=== PATIENT | female | born 1970 | race Two or more races ===

== ENCOUNTER 2018-07-01 01:15 | Emergency (ER) | payer BC, MEDICAID ==
[~2018-07-01] VITALS: Ht 160 cm; Wt 92.5 kg
[~2018-07-01 01:15] MED LIST: ALBUTEROL SULF8.5 GM INH; ALLERGY4 MG PO; AZITHROMYCIN250 MG ORAL; AZITHROMYCIN250 MG PO; BACTRIM DS TAB1 EAC1 ORAL; COLACE100 MG ORAL; DIFLUCAN100 MG PO; DIPHENHYDRAMINE25 M1 ORAL; IBUPROFEN600 MG ORAL; KEFLEX500 MG ORAL; MOTRIN600 MG PO; NAPROXEN500 M1 ORAL; NORCO 5-325 TA1 EACH ORAL; NORCO1 EA ORAL; PENICILLIN V P500 MG PO; PREDNISOLO15 MG/5 M1 PO; PREDNISONE20 MG ORAL; ROBAXIN-750750 MG PO; ROBITUSSIN DM5 ML ORAL
--- NOTE | 2018-07-01 01:45 | Emergency Room Report ---
History of Present Illness General Chief Complaint: Lower Extremity Injury Source: Patient Present Illness HPI This 48-year-old female with no significant past medical history. She thinks she may have gout in the past. She presents with right heel pain. Has been ongoing for 4 days now. Worse with walking. There is some swelling to that area. No trauma. Pain is 9 out of 10. No radiation. Allergies: Coded Allergies: No Known Allergies (Unverified , 01/21/13) Patient History Past Medical History: see triage record, old chart reviewed Past Surgical History: other Pertinent Family History: none Social History: Denies: smoking Last Menstrual Period: May Now: No Immunizations: other Reviewed Nursing Documentation: PMH: Agreed; PSxH: Agreed Nursing Documentation-PMH Past Medical History: No Stated History Review of Systems Eye: Denies: eye pain, blurred vision ENT: Denies: ear pain, nose congestion, throat swelling Respiratory: Denies: cough, shortness of breath Cardiovascular: Denies: chest pain, palpitations Gastrointestinal: Denies: abdominal pain, diarrhea, nausea, vomiting Musculoskeletal: Reports: muscle pain; Denies: back pain, joint pain Skin: Denies: rash Neurological: Denies: headache, numbness Endocrine: Denies: increased thirst, increased urine Hematologic/Lymphatic: Denies: easy bruising All Other Systems: negative except mentioned in HPI Physical Exam Vital Signs Date Time Temp Pulse Resp B/P (MAP) Pulse Ox O2 Delivery O2 Flow Rate FiO2 07/01/18 01:18 98.3 74 16 120/80 97 Room Air 98.2 vvitals normal Sp02 EP Interpretation: reviewed, normal General Appearance: well appearing, no apparent distress, alert Head: normocephalic, atraumatic Eyes: bilateral eye PERRL, bilateral eye EOMI ENT: hearing grossly normal, normal pharynx Neck: full range of motion, supple, no meningismus Respiratory: chest non-tender, lungs clear, normal breath sounds Cardiovascular #1: regular rate, rhythm, no murmur Gastrointestinal: normal bowel sounds, non tender, no mass, no organomegaly, no bruit, non-distended Musculoskeletal: back normal, normal range of motion, tender - Tenderness to the right calcaneus. No deformity. Mild edema. No redness. Minimal warmth. Neurologic: alert, oriented x3 Psychiatric: mood/affect normal Skin: warm/dry Medical Decision Making Diagnostic Impression: Primary Impression: Calcaneal bursitis, right ER Course Patient with heel pain. No evidence of any fracture dislocation. She does have a small bone spur in that area. I doubt this is gout since is an atypical area and presentation. No evidence of any septic joint. We'll discharge home. Other X-Ray Diagnostic Results Other X-Ray Diagnostic Results : X-Ray ordered: x-ray right foot # of Views/Limited Vs Complete: 3 View Indication: Pain EP Interpretation: Yes Interpretation: no dislocation, no soft tissue swelling, no fractures, other - bone spur to heal Impression: No acute disease Electronically Signed by: Compa López MD Last Vital Signs Date Time Temp Pulse Resp B/P (MAP) Pulse Ox O2 Delivery O2 Flow Rate FiO2 07/01/18 01:18 98.3 74 16 120/80 97 Room Air 98.2 Status: improved Disposition: HOME, SELF-CARE Condition: Stable Scripts Ibuprofen* (MOTRIN*) 600 Mg Tablet 600 MG ORAL THREE TIMES A DAY, #30 TAB 0 Refills Prov: CMOPA LÓPEZ M.D. 07/01/18 Additional Instructions: Follow-up with your doctor in 7 days. Elevate the foot. Ice pack to the area. Return if worse. COMPA LÓPEZ M.D. Jul 01, 2018 01:45
--- NOTE | 2018-07-01 02:31 | Diagnostic Imaging Report ---
EXAM: XR Right Foot Complete, 3 or More Views. CLINICAL HISTORY: PAIN TECHNIQUE: Frontal, lateral and oblique views of the right foot. COMPARISON: No relevant prior studies available. FINDINGS: Bones: No acute fracture. Posterior calcaneal spur. Joints: No dislocation. Mild degenerative changes of the first metatarsophalangeal joint. Soft tissues: No radiopaque foreign body. IMPRESSION: No acute osseous abnormality.
[2018-07-01] MEDS ORDERED: IBUPROFEN600 MG ORAL (02:41)
[2018-07-01 02:47] VITALS: BP 0/0
== END 2018-07-01 02:47 | disposition home or self-care (01) ==
LOC: EMR 02:08
DX: M77.51 Other enthesopathy of right foot and ankle (principal); M77.31 Calcaneal spur, right foot; M79.1 Myalgia
CPT/HCPCS: 99283

== ENCOUNTER 2020-01-10 15:32 | Inpatient (IN) | payer OTHER, MEDICAID ==
[~2020-01-10] VITALS: Ht 160 cm; Wt 97.5 kg
--- NOTE | 2020-01-10 15:49 | NUR ---
ED Nurse Note: patient walked into ED from her PMD due to abnomral ekg. patient reports intermittently stiff neck for 2 months. patient denies any cardiac history. patient is alert awake x 4 ambulatory steady gait, breathing unlabored and even. patient on a hospital gown, on a quality assurance monitor final.
[2020-01-10 16:00] VITALS: BP 116/61
--- NOTE | 2020-01-10 16:10 | Emergency Room Report ---
History of Present Illness General Chief Complaint: General Complaint Source: Patient Present Illness HPI Patient was sent by her private doctor because of an abnormal EKG and alleged hypertension. The patient's been having intermittent chest pain for over 4 months. She sometimes feels a bubble in her heart that lasts for seconds and she feels dizzy at that time. This is not related to the pain that she feels which she describes as sharp. She is not taken any medication for this pain. She also states that she has intermittent edema that is worse at the end of the day. Her legs are skinny in the morning. She denies any calf pain. There is no hemoptysis. The patient also complains about neck pain and stiffness. She claims that 2 years ago she had x-rays or an MRI that were normal. She is not taken any medication or had physical therapy for this. She feels a prominence in the right base of her skull. Third problem is that she has rash that is intermittent in her bikini line. She is been seen by a surgeon and he has described it as being something like psoriasis. She says it sometimes drains. She claims is not MRSA. She denies any fevers or chills. No dysuria. The patient smokes heavily. Allergies: Coded Allergies: No Known Allergies (Unverified , 01/21/13) Patient History Past Medical History: see triage record Social History: Reports: smoking Social History Narrative born in [place] Now: No Reviewed Nursing Documentation: PMH: Agreed; PSxH: Agreed Nursing Documentation-PMH Past Medical History: No Stated History Review of Systems All Other Systems: negative except mentioned in HPI Physical Exam Vital Signs Date Time Temp Pulse Resp B/P (MAP) Pulse Ox O2 Delivery O2 Flow Rate FiO2 01/10/20 15:40 98.2 91 18 120/76 (91) 98 Room Air Sp02 EP Interpretation: reviewed, normal General Appearance: well appearing, no apparent distress, GCS 15 Head: normocephalic Eyes: bilateral eye normal inspection, bilateral eye PERRL, bilateral eye EOMI ENT: moist mucus membranes Neck: full range of motion, supple, tender - right mastoid - more muscular Respiratory: chest non-tender, lungs clear, normal breath sounds Cardiovascular #1: regular rate, rhythm, no edema Cardiovascular #2: 2+ radial (R) Gastrointestinal: normal inspection, normal bowel sounds, non tender, no mass, non-distended Genitourinary: no CVA tenderness Musculoskeletal: back normal, normal range of motion, gait/station normal Neurologic: alert, oriented x3, grossly normal Psychiatric: mood/affect normal Skin: warm/dry, other - follicular rash groin, inner thighs Medical Decision Making Diagnostic Impression: Primary Impression: NSTEMI (non-ST elevated myocardial infarction) Additional Impressions: Tobacco abuse Neck pain Folliculitis ER Course Patient presents with left-sided chest pain for several months with an abnormal EKG from her private doctor. Differential includes cardiac ischemia, variation of normal EKG, acute myocardial infarction, arrhythmia, chest wall pain amongst others. Evaluation with EKG, chest x-ray and labs. At this point the patient declines pain medication. The 2 other problems that she has intermittent neck stiffness. With a history of prior MRI or x-rays that were normal no indication for starting at this time. The third the rash in the bikini area no obvious infection at this time. Local treatment with bacitracin advised to patient. EKG from private doctor's office taken today at 1420. Normal sinus rhythm with nonspecific ST-T wave changes septally. Rate 82. EKG here: Normal sinus rhythm with nonspecific ST-T wave changes. Heart rate 85. Some suggestion of P pulmonale. Called 1655 with positive troponin. Aspirin and nitrates ordered. Unable to order beta-blockers. Rest of labs remarkable.for elevated WBC without left shift. Minimally low potassium. Pyuria, though specimen is contaminated. Admit patient telemetry for cardiac evaluation. Improved with treatment and denies pain. Laboratory Tests Test 01/10/20 16:00 01/10/20 16:12 White Blood Count 11.7 K/UL (4.8-10.8) H Red Blood Count 4.56 M/UL (4.20-5.40) Hemoglobin 13.5 G/DL (12.0-16.0) Hematocrit 40.1 % (37.0-47.0) Mean Corpuscular Volume 88 FL (80-99) Mean Corpuscular Hemoglobin 29.5 PG (27.0-31.0) Mean Corpuscular Hemoglobin Concent 33.6 G/DL (32.0-36.0) Red Cell Distribution Width 14.5 % (11.6-14.8) Platelet Count 399 K/UL (150-450) Mean Platelet Volume 9.6 FL (6.5-10.1) Neutrophils (%) (Auto) 71.0 % (45.0-75.0) Lymphocytes (%) (Auto) 21.0 % (20.0-45.0) Monocytes (%) (Auto) 5.0 % (1.0-10.0) Eosinophils (%) (Auto) 2.0 % (0.0-3.0) Basophils (%) (Auto) 1.0 % (0.0-2.0) Prothrombin Time 10.0 SEC (9.30-11.50) Prothrombin Time INR 0.9 (0.9-1.1) Activated Partial Thromboplast Time 27 SEC (23-33) Sodium Level 141 MMOL/L (136-145) Potassium Level 3.4 MMOL/L (3.5-5.1) L Chloride Level 102 MMOL/L (98-107) Carbon Dioxide Level 29 MMOL/L (21-32) Anion Gap 10 mmol/L (5-15) Blood Urea Nitrogen 10 mg/dL (7-18) Creatinine 0.9 MG/DL (0.55-1.30) Estimate Glomerular Filtration Rate > 60 mL/min (>60) Glucose Level 116 MG/DL (74-106) H Calcium Level 9.2 MG/DL (8.5-10.1) Total Bilirubin 0.3 MG/DL (0.2-1.0) Aspartate Amino Transferase (AST) 23 U/L (15-37) Alanine Aminotransferase (ALT) 38 U/L (12-78) Alkaline Phosphatase 84 U/L (46-116) Total Creatine Kinase 54 U/L (26-308) Troponin I 0.100 ng/mL (0.000-0.056) Pro-B-Type Natriuretic Peptide < 5 pg/mL (0-125) Total Protein 7.9 G/DL (6.4-8.2) Albumin 3.5 G/DL (3.4-5.0) Globulin 4.4 g/dL Albumin/Globulin Ratio 0.8 (1.0-2.7) L Urine Color Pale yellow Urine Appearance Slightly cloudy Urine pH 7 (4.5-8.0) Urine Specific [place] 1.015 (1.005-1.035) Urine Protein Negative (NEGATIVE) Urine Glucose (UA) Negative (NEGATIVE) Urine Ketones 1+ (NEGATIVE) H Urine Blood Negative (NEGATIVE) Urine Nitrite Negative (NEGATIVE) Urine Bilirubin Negative (NEGATIVE) Urine Urobilinogen Normal MG/DL (0.0-1.0) Urine Leukocyte Esterase 1+ (NEGATIVE) H Urine RBC 0-2 /HPF (0 - 2) Urine WBC 5-10 /HPF (0 - 2) H Urine Squamous Epithelial Cells Many /LPF (NONE/OCC) H Urine Bacteria Few /HPF (NONE) EKG Diagnostic Results Rate: normal Rhythm: NSR ST Segments: no acute changes - Nonspecific ST-T wave changes Rhythm Strip Diag. Results EP Interpretation: yes Rhythm: NSR, no PVC's, no ectopy Chest X-Ray Diagnostic Results Chest X-Ray Diagnostic Results : Chest X-Ray Ordered: Yes # of Views/Limited/Complete: 1 View Indication: Chest Pain EP Interpretation: Yes Interpretation: no consolidation, no effusion, no pneumothorax Impression: No acute disease Electronically Signed by: Electronically signed by Luis A Torres MD Last Vital Signs Date Time Temp Pulse Resp B/P (MAP) Pulse Ox O2 Delivery O2 Flow Rate FiO2 01/10/20 23:14 Room Air 01/10/20 17:07 110/61 01/10/20 16:05 95 14 01/10/20 16:00 98.2 95 Status: improved Disposition: HOME, SELF-CARE Condition: Improved Scripts No Active Prescriptions or Reported Meds Luis A Torres MD Jan 10, 2020 16:10
[2020-01-10 16:35] LABS: APPEARANCE,URINE SLIGHTLY CLOUDY; BILIRUBIN, URINE NEGATIVE (NEGATIVE); COLOR,URINE PALE YELLOW; GLUCOSE, URINE (UA) NEGATIVE (NEGATIVE); KETONES,URINE 1+ (NEGATIVE); LEUKOCYTE ESTERASE ,URINE 1+ (NEGATIVE); NITRITE,URINE NEGATIVE (NEGATIVE); PH,URINE 7 (4.5-8.0); PROTEIN,URINE NEGATIVE (NEGATIVE); UROBILINOGEN,URINE NORMAL MG/DL (0.0-1.0)
[2020-01-10 16:41] LABS: HEMATOCRIT 40.1 % (37.0-47.0); HEMOGLOBIN 13.5 G/DL (12.0-16.0); MEAN CORPUSCULAR VOLUME 88 FL (80-99); PLATELET COUNT 399 K/UL (150-450); RED BLOOD COUNT 4.56 M/UL (4.20-5.40); RED CELL DISTRIBUTION WIDTH 14.5 % (11.6-14.8); WHITE BLOOD COUNT 11.7 K/UL (4.8-10.8)
[2020-01-10 16:46] LABS: INR 0.9 (0.9-1.1)
--- NOTE | 2020-01-10 16:49 | Diagnostic Imaging Report ---
Indication: Chest pain Technique: One view of the chest Comparison: none Findings: Lungs and pleural spaces are clear. Heart size is normal. Impression: No acute process
[2020-01-10 16:54] LABS: ANION GAP 10 mmol/L (5-15); BLOOD UREA NITROGEN 10 mg/dL (7-18); CALCIUM 9.2 MG/DL (8.5-10.1); CARBON DIOXIDE 29 MMOL/L (21-32); CHLORIDE 102 MMOL/L (98-107); CREATININE 0.9 MG/DL (0.55-1.30); POTASSIUM 3.4 MMOL/L (3.5-5.1); SODIUM 141 MMOL/L (136-145)
[2020-01-10 16:59] LABS: ALANINE AMINOTRANSFERASE 38 U/L (12-78); ALBUMIN 3.5 G/DL (3.4-5.0); ALBUMIN/GLOBULIN RATIO 0.8 (1.0-2.7); ALKALINE PHOSPHATASE 84 U/L (46-116); ASPARTATE AMINO TRANSFERASE 23 U/L (15-37); BILIRUBIN,TOTAL 0.3 MG/DL (0.2-1.0); CREATINE KINASE 54 U/L (26-308)
[2020-01-10] MEDS ORDERED: Nitroglycerin 2% oint pkt TOPIC ONE (17:00)
--- NOTE | 2020-01-10 19:09 | NUR ---
HAND-OFF: Report given to Mariela Flores, endorsed all plan of care.
[2020-01-10 19:10] VITALS: BP 110/65
--- NOTE | 2020-01-10 19:20 | NUR ---
ED Nurse Note: Pt resting in bed, boyfriend at bedside. VSS no s/s of distress noted
--- NOTE | 2020-01-10 21:02 | NUR ---
ED Nurse Note: report given to CHEPE castillo SDU
--- NOTE | 2020-01-10 21:05 | NUR ---
ED Nurse Note: pT RESTING IN BED; BELONGINGS LIST COMPLETE, SWABS COMPLETE. VSS NO S/S OF DISTRESS NOTED
[2020-01-10 21:20] VITALS: BP 121/55
--- NOTE | 2020-01-10 21:30 | NUR ---
ER DISCHARGE NOTE: Patient is cleared to be discharged to SDU per ERMD, pt is aox4, on room air, with stable vital signs. pt was able to verbalize understanding. pt is able to ambulate with steady gait. pt took all belongings. Pt transferred with BIOANALYST and one RN in stable condition.
--- NOTE | 2020-01-10 21:38 | NUR ---
NURSE NOTES: Received pt froM eR with DX non ST [place] . Pt is AO x4 , SR on the monitor. Bp stable, afebrile . On room air, lung sounds clear to auscultation. Heplock left AC patent to flushes. Complained of tolerable chest pain but refused pain meds. Will continue to monitor.
[2020-01-10 22:00] VITALS: BP_SYST 120; BP_SYST 122; BP_DIAS 52; BP_DIAS 65
--- NOTE | 2020-01-10 22:17 | NUR ---
NURSE NOTES: Called DR Rojas for orders , but Dr Rojas has ground crew lines person per mds message.
--- NOTE | 2020-01-10 22:31 | NUR ---
NURSE NOTES: Called Dr Mckenna for admission orders.- awaiting for md to call back
[2020-01-10 23:00] VITALS: BP 129/58
[2020-01-10] MEDS ORDERED: Nitroglycerin Subl 0.4mg tab SL PRN (23:00)
[2020-01-10] MEDS ORDERED: HYDROcodone/Acetamin 5/325 tab ORAL PRN (23:00)
--- NOTE | 2020-01-10 23:38 | NUR ---
NURSE NOTES: Pt claimed of inability to sleep, Restoril 30mg PO was given, per pt request
[2020-01-11] VITALS (9 sets, daily range): BP systolic 97–118; BP diastolic 48–67
--- NOTE | 2020-01-11 02:00 | NUR ---
NURSE NOTES: Sleeping well at this time and no C/o of any cp nor SOB. will continue to monitor.
--- NOTE | 2020-01-11 05:00 | NUR ---
NURSE NOTES: No cp nor sob noted.
[2020-01-11 06:01] LABS: BASOPHILS % (AUTO) 0.7 % (0.0-2.0); EOSINOPHILS % (AUTO) 2.7 % (0.0-3.0); HEMATOCRIT 37.4 % (37.0-47.0); HEMOGLOBIN 12.7 G/DL (12.0-16.0); LYMPHOCYTES % (AUTO) 21.8 % (20.0-45.0); MEAN CORPUSCULAR VOLUME 87 FL (80-99); MONOCYTES % (AUTO) 6.4 % (1.0-10.0); NEUTROPHILS % (AUTO) 68.4 % (45.0-75.0); PLATELET COUNT 368 K/UL (150-450); RED CELL DISTRIBUTION WIDTH 12.4 % (11.6-14.8); WHITE BLOOD COUNT 12.1 K/UL (4.8-10.8)
[2020-01-11 06:06] LABS: ANION GAP 14 mmol/L (5-15); BLOOD UREA NITROGEN 15 mg/dL (7-18); CALCIUM 8.5 MG/DL (8.5-10.1); CARBON DIOXIDE 21 MMOL/L (21-32); CHLORIDE 106 MMOL/L (98-107); CREATININE 0.8 MG/DL (0.55-1.30); POTASSIUM 3.8 MMOL/L (3.5-5.1); SODIUM 141 MMOL/L (136-145)
--- NOTE | 2020-01-11 07:32 | NUR ---
NURSE NOTES: No chest pain. On NSR VSS.
--- NOTE | 2020-01-11 07:32 | NUR ---
HAND-OFF: Report given to Rey [place].
--- NOTE | 2020-01-11 07:32 | NUR ---
NURSE NOTES: Received patient from [place]. Patient is awake, alert and oriented x4 . Sinus Rhythm on the heart monitor, HR 73. Patient is on room air, no signs of respiratory distress, O2 saturation at 100%. IV site is left AC 20g patent and asymptomatic. Bed is locked, placed in lowest position, side rails up x2, bed alarm on, call light within reach. Will continue to monitor.
[2020-01-11] MEDS ORDERED: Heparin 5000 units/ml inj SUBQ SCH (09:00)
--- NOTE | 2020-01-11 10:01 | NUR ---
NURSE NOTES: Patient requesting to go AMA risks and benefits discussed with patient, called covering physician Dr. Mckenna office to inform doctor.
--- NOTE | 2020-01-11 10:22 | NUR ---
NURSE NOTES: Patient has left AMA, discussed with patient signs and symptoms that may require medical attention and to go to Emergency Room if symptoms occur.
--- NOTE | 2020-01-12 13:39 | Discharge Summary ---
Discharge Summary Discharge Summary _ DATE OF ADMISSION: 01/10/2020 DATE OF DISCHARGE: 01/11/2020 Patient left AGAINST MEDICAL ADVICE REASON FOR ADMISSION: 49 years old female with no significant past medical history, was seen by her primary physician and found to have hypertension and abnormal EKG. Patient reported intermittent chest pain for the last 4 months. Patient also reported intermittent edema, worse at the end of the day. She denied any calf pain no hemoptysis. No fevers or chills. No abdominal pain. Patient also reported intermittent neck stiffness. Patient had prior imaging, which was normal as per patient. Patient also reported rash in the bikini area , no obvious infection Upon evaluation vital signs were stable. Laboratory work-up revealed mild leukocytosis WBC 11.7, stable hemoglobin , hematocrit and platelet count. Potassium 3.4. Stable other electrolytes and renal parameters . Glucose 116. Stable LFT. Troponin 0.1. pro BNP less than 5. Albumin 3.5. Urinalysis revealed +1 ketones, +1 leukocyte esterase ,borderline pyuria and few bacteria. EKG revealed sinus rhythm with nonspecific ST-T wave changes , no acute ischemic changes. Chest x-ray demonstrated no acute cardiopulmonary pathology. Patient subsequently admitted to ICU for further management. HOSPITAL COURSE: Patient admitted to ICU. Serial troponin were ordered/ Patient received in ER aspirin 325 mg. Patient started on cardiac diet. EKG and echocardiogram were ordered. Supplemental l oxygen was on board as needed to keep oximetry above 92%. Second troponin already was normal. Pain management was addressed as needed. Supportive care provided.. All electrolytes and renal parameters remained stable. Patient remained afebrile with mild leukocytosis. Patient was counseled on smoking cessation. Chest pain resolved. Patient was advised to use topical bacitracin to folliculitis area. Patient decided to leave AGAINST MEDICAL ADVICE. The risks and consequences of signing AGAINST MEDICAL ADVICE were discussed with patient in detail. Patient verbalized understanding, nevertheless signed AMA form and left. FINAL DIAGNOSES: elevated troponin -resolved possible NSTEMI chest pain -resolved neck pain folliculitis tobacco abuse I have been assigned to dictate discharge summary for this account. I was not involved in the patient's management. Davina Miller NP Jan 12, 2020 13:38
== END 2020-01-11 10:20 | disposition left against medical advice (07) | DRG 282 ==
LOC: EMR 16:59 → ICU 17:30 → EDBEDREQ 20:13
DX: I21.4 Non-ST elevation (NSTEMI) myocardial infarction (principal); L73.9 Follicular disorder, unspecified; F17.200 Nicotine dependence, unspecified, uncomplicated; M54.2 Cervicalgia
CPT/HCPCS: 36415; 71045; 80048; 80053; 81003; 82550; 83880; 84484; 85025; 85610; 85730; 87081; 93005; 99285